=== PATIENT | male | born 1990 | race Caucasian/White ===

== ENCOUNTER 2017-11-04 09:25 | Emergency (ER) | payer SELFPAY ==
[~2017-11-04] VITALS: Ht 177.8 cm; Wt 86.6 kg
[2017-11-04 09:29] VITALS: BP 142/91; PULSE 66; RESP 18; TEMP 97.8; O2SAT 98
[2017-11-04 09:34] VITALS: BP 142/91; PULSE 66; RESP 18; TEMP 97.8; O2SAT 98
--- NOTE | 2017-11-04 09:43 | PD ---
HPI Chief Complaint: ENT Complaint Time Seen by Provider: 09:38 Travel History International Travel<30 days: No Contact w/Intl Traveler<30days: No Traveled to known affect area: No History of Present Illness HPI 76-year-old male is complaining of sore throat. Been sick since yesterday. He is not sure if he had a fever. He has had some trouble swallowing. He is not coughing or short of breath. He is generally healthy on no medications. [facility] Past Medical History Medical History: Denies Significant Hx Diminished Hearing: No Tetanus Vaccination: < 5 Years Past Surgical History Surgical History: No Previous Surgery Social History Alcohol Use: No Tobacco Use: No Substance Use: No Allergies-Medications (Allergen,Severity, Reaction): Coded Allergies: No Known Allergies (Unverified Adverse Reaction, Unknown, 11/04/17) Reported Meds & Prescriptions Reported Meds & Active Scripts Active No Active Prescriptions or Reported Medications Review of Systems General / Constitutional: No: Fever, Chills Eyes: No: Diploplia HENT: Positive: Sore Throat Cardiovascular: No: Chest Pain or Discomfort, Palpitations Respiratory: No: Cough, Shortness of Breath Gastrointestinal: No: Vomiting, Diarrhea Genitourinary: No: Urgency Musculoskeletal: No: Myalgias, Pain Skin: No Rash Neurologic: No: Weakness Hematologic/Lymphatic: No: Easy Bruising Physical Exam Narrative GENERAL: Well-developed male SKIN: Focused skin assessment warm/dry. HEAD: Atraumatic. Normocephalic. EYES: Pupils equal and round. No scleral icterus. No injection or drainage. ENT: No nasal bleeding or discharge. Mucous membranes pink and moist. Posterior pharynx is erythematous. There is no exudate. NECK: Trachea midline. No JVD. Mild bilateral lymphadenopathy CARDIOVASCULAR: Regular rate and rhythm. No murmur appreciated. RESPIRATORY: No accessory muscle use. Clear to auscultation. Breath sounds equal bilaterally. GASTROINTESTINAL: Abdomen soft, non-tender, nondistended. Hepatic and splenic margins not palpable. MUSCULOSKELETAL: No obvious deformities. No clubbing. No cyanosis. No edema. NEUROLOGICAL: Awake and alert. No obvious cranial nerve deficits. Motor grossly within normal limits. Normal speech. PSYCHIATRIC: Appropriate mood and affect; insight and judgment normal. Data Data Last Documented VS Vital Signs Date Time Temp Pulse Resp B/P (MAP) Pulse Ox O2 Delivery O2 Flow Rate FiO2 3/22/18 09:34 97.8 66 18 142/91 (108) 98 11/04/17 09:29 Room Air Orders Orders Group A Rapid Strep Screen (11/04/17 09:38) Strep Culture (Group A) (11/04/17 09:40) MDM Medical Decision Making Medical Screen Exam Complete: Yes Emergency Medical Condition: Yes Medical Record Reviewed: Yes Differential Diagnosis Differential includes strep pharyngitis, viral pharyngitis Narrative Course Test for strep is negative. Diagnosis of viral pharyngitis Diagnosis Primary Impression: Viral pharyngitis Additional Instructions: Take Tylenol or Motrin as needed Scripts No Active Prescriptions or Reported Meds Disposition: 01 DISCHARGE HOME Condition: Stable He Kay MD Nov 04, 2017 09:43
== END 2017-11-04 10:27 | disposition home or self-care (01) ==
LOC: PHEFT 09:25
DX: J02.8 Acute pharyngitis due to other specified organisms (principal); B97.89 Other viral agents as the cause of diseases classified elsewhere
CPT/HCPCS: 87081; 87880; 99283